=== PATIENT | male | born 1950 | race Caucasian/White ===

== ENCOUNTER 2020-04-04 12:24 | Outpatient (CLI) | payer MEDICARE ==
--- NOTE | 2020-04-05 08:58 | EEG ---
DATE OF SERVICE: DESCRIPTION OF THE RECORD: The waking background is a medium to low amplitude, 9 hertz alpha frequency. The patient remained awake throughout the study. Photic stimulation was unremarkable. No epileptiform features were seen. IMPRESSION: This is a normal awake EEG. Job ID: [id number]
== END 2020-04-04 12:25 | disposition home or self-care (01) ==
LOC: EEG 12:24
PROVIDERS: ATTEND Nurse Practitioner Acute Care
DX: R56.9 Unspecified convulsions (principal)
CPT/HCPCS: 95816

== ENCOUNTER 2020-05-06 12:59 | Outpatient (CLI) | payer MEDICARE | END 2020-05-06 13:00 | disposition home or self-care (01) | LOC: MRI 12:59 | PROVIDERS: ATTEND Nurse Practitioner Acute Care | DX: R56.9 Unspecified convulsions (principal); I67.82 Cerebral ischemia | CPT/HCPCS: 70553 ==